=== PATIENT | female | born 1935 | race Hispanic/Latino ===

== ENCOUNTER → 2018-11-20 | Outpatient (CLI) | payer OTHER ==
[~2018-11-20] MED LIST: ATOR40TA71 PO; DORZ10DR19 OU; FISH1CAP63 PO; LATA7.5D OU; LEVO100T12 PO; METF-444 PO; TIMO1DRO2 OU
== END | disposition home or self-care (01) ==
LOC: RAH 12:42
PROVIDERS: ATTEND Family Medicine
DX: I65.23 Occlusion and stenosis of bilateral carotid arteries (principal)
CPT/HCPCS: 93880

== ENCOUNTER 2019-11-17 09:38 | Emergency (ER) | payer OTHER ==
[2019-11-17] MEDS ORDERED: TETANUS/DIPHTHERIA TOXOID [ADULT] 0.5 ML VIAL IM ONE (10:25)
[2019-11-17 10:34] LABS: BASOPHILS % (AUTO) 0.8 % (0.0-5.0); EOSINOPHILS % (AUTO) 2.3 % (0.0-8.0); HEMATOCRIT 26.6 % (36-48); LYMPHOCYTES % (AUTO) 11.2 % (21.0-51.0); MEAN CORPUSCULAR HEMOGLOBIN 30.5 pg (27.0-33.0); MEAN CORPUSCULAR HGB CONC 33.5 g/dL (32.0-36.0); MEAN CORPUSCULAR VOLUME 91.1 fL (79-99); PLATELET COUNT (AUTO) 168 K/uL (130-400); RED BLOOD CELL COUNT(AUTO) 2.92 MIL/uL (4.00-5.50); RED CELL DISTRIBUTION WIDTH 14.1 % (11.0-15.5); WHITE BLOOD COUNT (AUTO) 10.3 K/uL (4.8-10.8)
[2019-11-17 10:42] LABS: POTASSIUM 4.2 mmol/L (3.5-5.1)
[2019-11-17 10:44] LABS: INR 1.12 (0.85-1.15); PARTIAL THROMBOPLASTIN TIME 25.4 SEC (26.3-35.5)
[2019-11-17 10:47] LABS: ALBUMIN 3.3 g/dL (3.5-5.0); BILIRUBIN,TOTAL 0.8 mg/dL (0.2-1.0); TOTAL PROTEIN, SERUM 6.1 g/dL (6.0-8.3)
[2019-11-17] MEDS ORDERED: OCTYL 2-CYANOACRYLATE 1 EACH TP ONE (11:30)
== END 2019-11-17 12:09 | disposition home or self-care (01) ==
LOC: EDH 09:38
DX: S01.511A Laceration without foreign body of lip, initial encounter (principal); S01.512A Laceration without foreign body of oral cavity, initial encounter; E78.5 Hyperlipidemia, unspecified; I10 Essential (primary) hypertension; M19.90 Unspecified osteoarthritis, unspecified site; W01.198A Fall on same level from slipping, tripping and stumbling with subsequent striking against other object, initial encounter; Y93.01 Activity, walking, marching and hiking; Y92.89 Other specified places as the place of occurrence of the external cause; Y99.8 Other external cause status
CPT/HCPCS: 12011; 36415; 70450; 70486; 72125; 80053; 85025; 85610; 85730; 90471; 90714; 93005

== ENCOUNTER 2020-07-15 12:00 | Inpatient (IN) | payer OTHER ==
[~2020-07-15] VITALS: Ht 149.9 cm; Wt 51.1 kg
[2020-07-15] MEDS ORDERED: LIDOCAINE HCL 1% 20 ML VIAL ONE (12:34)
[2020-07-15] MEDS ORDERED: ONDANSETRON 4MG INJ ONE ×2 (13:16→18:02)
[2020-07-15 13:22] LABS: EOSINOPHILS % (AUTO) 7.7 % (0.0-8.0); HEMATOCRIT 27.5 % (36-48); LYMPHOCYTES % (AUTO) 19.4 % (21.0-51.0); MEAN CORPUSCULAR HEMOGLOBIN 29.7 pg (27.0-33.0); MEAN CORPUSCULAR HGB CONC 33.1 g/dL (32.0-36.0); MEAN CORPUSCULAR VOLUME 89.9 fL (79-99); MONOCYTES % (AUTO) 4.9 % (3.0-13.0); NEUTROPHILS % (AUTO) 66.6 % (40.0-77.0); PLATELET COUNT (AUTO) 217 K/uL (130-400); RED BLOOD CELL COUNT(AUTO) 3.06 MIL/uL (4.00-5.50); RED CELL DISTRIBUTION WIDTH 15.6 % (11.0-15.5); WHITE BLOOD COUNT (AUTO) 8.4 K/uL (4.8-10.8)
[2020-07-15 13:36] LABS: PARTIAL THROMBOPLASTIN TIME 27.6 SEC (26.3-35.5)
[2020-07-15 13:42] LABS: CREATINE KINASE, TOTAL 71 U/L (21-232); MYOGLOBIN 40 ng/mL (10-92); TROPONIN I < 0.04 ng/mL (0.00-0.06)
[2020-07-15 13:57] LABS: ALBUMIN 2.4 g/dL (3.5-5.0); BILIRUBIN,TOTAL 0.9 mg/dL (0.2-1.0); CREATININE 0.7 mg/dL (0.5-1.5); POTASSIUM 3.5 mmol/L (3.5-5.1); TOTAL PROTEIN, SERUM 5.7 g/dL (6.0-8.3)
[2020-07-15] MEDS ORDERED: MORPHINE 2 MG SYG ONE (14:15)
[2020-07-15 14:19] LABS: INR 1.15 (0.85-1.15); PROTHROMBIN TIME 12.4 SEC (9.6-11.6)
[2020-07-15] MEDS ORDERED: TETANUS/DIPHTHERIA TOXOID [ADULT] 0.5 ML VIAL IM ONE (15:10)
[2020-07-15] MEDS ORDERED: DEXTROSE 50%-WATER 50 ML DISP.SYRIN IV PRN (15:15)
[2020-07-15] MEDS ORDERED: ACETAMINOPHEN 325 MG TAB PO PRN (15:15)
[2020-07-15] MEDS ORDERED: GLUCAGON 1MG KIT 1 MG ML IM PRN (15:15)
[2020-07-15] MEDS ORDERED: LIDOCAINE HCL-MPF 1% 2ML VIAL IV PRN ×2 (15:15)
[2020-07-15] MEDS ORDERED: ONDANSETRON 4MG INJ IVP PRN (15:15)
[2020-07-15] MEDS ORDERED: KCL 20 MEQ ERTAB PO PRN (15:15)
[2020-07-15] MEDS ORDERED: MAGNESIUM 2GM PREMIX 50ML 50 ML IV PRN (15:15)
[2020-07-15] MEDS ORDERED: POTASSIUM CHLORIDE 20MEQ/100ML 100 ML IV PRN ×2 (15:15)
[2020-07-15] MEDS: PANTOPRAZOLE 40 MG TAB DR PO SCH (15:15)
[2020-07-15] MEDS: INSULIN HUMULIN R 100 UNIT/ML 3ML SQ SCH ×2 (16:30→21:00)
[2020-07-15] MEDS ORDERED: MAGNESIUM 2GM PREMIX 50ML 50 ML IV ONE (16:54)
[2020-07-15] MEDS ORDERED: LABETALOL 20MG SYG IV ONE (17:39)
[2020-07-15] MEDS ORDERED: FAMOTIDINE 20MG TAB ONE (17:40)
[2020-07-15] MEDS ORDERED: LOSARTAN 50 MG TABLET ONE (18:35)
[2020-07-15 20:02] LABS: HEMATOCRIT 23.8 % (36-48)
[2020-07-15] MEDS ORDERED: HYDRALAZINE 25MG TABLET ONE (21:04)
[2020-07-15] MEDS ORDERED: HYDRALAZINE 25MG TABLET PO PRN (21:45)
[2020-07-16] VITALS (9 sets, daily range): BP systolic 136–199; BP diastolic 55–91
[2020-07-16 02:02] LABS: HEMATOCRIT 21.5 % (36-48)
[2020-07-16 02:23] LABS: INR 1.18 (0.85-1.15); PROTHROMBIN TIME 12.7 SEC (9.6-11.6)
[2020-07-16 02:28] LABS: ALBUMIN 2.2 g/dL (3.5-5.0); BILIRUBIN,TOTAL 0.6 mg/dL (0.2-1.0); CREATININE 0.9 mg/dL (0.5-1.5); POTASSIUM 3.5 mmol/L (3.5-5.1); TOTAL PROTEIN, SERUM 4.9 g/dL (6.0-8.3)
[2020-07-16] MEDS: INSULIN HUMULIN R 100 UNIT/ML 3ML SQ SCH ×4 (05:48→20:30)
[2020-07-16] MEDS ORDERED: DILT120T PO (05:53)
[2020-07-16] MEDS ORDERED: MULT-1203 PO (05:53)
[2020-07-16] MEDS ORDERED: LOSA50TA64 PO (05:53)
[2020-07-16] MEDS: LEVOTHYROXINE 100 MCG TABLET PO SCH (06:51)
[2020-07-16] MEDS ORDERED: METFORMIN HCL 500 MG TABLET PO SCH (08:00)
[2020-07-16] MEDS: PANTOPRAZOLE 40 MG TAB DR PO SCH (08:41)
[2020-07-16] MEDS: POTASSIUM CHLORIDE 10% ELIXIR 20 MEQ/15 ML UDCUP PO PRN ×2 (08:44→10:08)
[2020-07-16] MEDS: LABETALOL 20MG VIAL IV PRN ×2 (10:01→16:43)
[2020-07-16] MEDS: TIMOLOL MALEATE 0.5% 5 ML BOTTLE OU SCH ×2 (10:27→20:30)
[2020-07-16] MEDS: DORZOLAMIDE HCL 2% 10ML DROPS OU SCH ×2 (10:27→20:30)
[2020-07-16 11:39] LABS: HEMATOCRIT 28.7 % (36-48)
[2020-07-16] MEDS ORDERED: IOHEXOL-350 75 ML VIAL IV ONE (15:24)
[2020-07-16] MEDS: HEPARIN 25,000 UNITS/250ML D5W 250 ML IV SCH (17:04)
[2020-07-16 18:31] LABS: HEMATOCRIT 26.8 % (36-48)
[2020-07-16] MEDS: LATANOPROST 2.5 ML DROPS OU SCH (20:25)
[2020-07-16] MEDS: ATORVASTATIN 40 MG TABLET PO SCH (20:26)
[2020-07-17 03:00] VITALS: BP 162/63
[2020-07-17 04:27] LABS: HEMATOCRIT 25.1 % (36-48); MEAN CORPUSCULAR HEMOGLOBIN 30.9 pg (27.0-33.0); MEAN CORPUSCULAR HGB CONC 35.1 g/dL (32.0-36.0); MEAN CORPUSCULAR VOLUME 88.1 fL (79-99); RED BLOOD CELL COUNT(AUTO) 2.85 MIL/uL (4.00-5.50); RED CELL DISTRIBUTION WIDTH 15.8 % (11.0-15.5); WHITE BLOOD COUNT (AUTO) 6.9 K/uL (4.8-10.8)
[2020-07-17 04:35] LABS: MAGNESIUM 2.2 mg/dL (1.80-2.40); POTASSIUM 3.9 mmol/L (3.5-5.1)
[2020-07-17] MEDS: LEVOTHYROXINE 100 MCG TABLET PO SCH (06:05)
[2020-07-17] MEDS: INSULIN HUMULIN R 100 UNIT/ML 3ML SQ SCH ×4 (06:43→21:00)
[2020-07-17 08:29] VITALS: BP 198/82
[2020-07-17] MEDS ORDERED: LOSARTAN 50 MG TABLET PO SCH (09:00)
[2020-07-17] MEDS: DILTIAZEM 120MG SR CAP PO SCH (09:42)
[2020-07-17] MEDS: TIMOLOL MALEATE 0.5% 5 ML BOTTLE OU SCH ×2 (09:42→21:29)
[2020-07-17] MEDS: DORZOLAMIDE HCL 2% 10ML DROPS OU SCH ×2 (09:42→21:30)
[2020-07-17] MEDS: PANTOPRAZOLE 40 MG TAB DR PO SCH (09:42)
[2020-07-17 11:38] LABS: HEMATOCRIT 27.7 % (36-48)
[2020-07-17] MEDS: LABETALOL 20MG VIAL IV PRN (11:53)
[2020-07-17 12:09] VITALS: BP 210/89
[2020-07-17 16:17] VITALS: BP 157/66
[2020-07-17 20:00] VITALS: BP 157/54
[2020-07-17] MEDS: ATORVASTATIN 40 MG TABLET PO SCH (21:29)
[2020-07-17] MEDS: LOSARTAN 50 MG TABLET PO SCH (21:29)
[2020-07-17] MEDS: LATANOPROST 2.5 ML DROPS OU SCH (21:30)
[2020-07-17 23:40] VITALS: BP 168/56
[2020-07-18 04:03] VITALS: BP 136/43
[2020-07-18 04:27] LABS: POTASSIUM 3.8 mmol/L (3.5-5.1)
[2020-07-18 04:29] LABS: HEMATOCRIT 25.2 % (36-48); MEAN CORPUSCULAR HEMOGLOBIN 30.9 pg (27.0-33.0); MEAN CORPUSCULAR HGB CONC 34.1 g/dL (32.0-36.0); MEAN CORPUSCULAR VOLUME 90.6 fL (79-99); RED BLOOD CELL COUNT(AUTO) 2.78 MIL/uL (4.00-5.50); RED CELL DISTRIBUTION WIDTH 15.9 % (11.0-15.5); WHITE BLOOD COUNT (AUTO) 6.8 K/uL (4.8-10.8)
[2020-07-18] MEDS: LEVOTHYROXINE 100 MCG TABLET PO SCH (06:59)
[2020-07-18] MEDS: INSULIN HUMULIN R 100 UNIT/ML 3ML SQ SCH ×4 (07:30→20:39)
[2020-07-18 08:47] VITALS: BP 133/48
[2020-07-18] MEDS: DILTIAZEM 120MG SR CAP PO SCH (09:31)
[2020-07-18] MEDS: PANTOPRAZOLE 40 MG TAB DR PO SCH (09:31)
[2020-07-18] MEDS: LOSARTAN 50 MG TABLET PO SCH ×2 (09:31→22:43)
[2020-07-18] MEDS: DORZOLAMIDE HCL 2% 10ML DROPS OU SCH ×2 (09:32→22:54)
[2020-07-18] MEDS: TIMOLOL MALEATE 0.5% 5 ML BOTTLE OU SCH ×2 (09:32→22:54)
[2020-07-18 12:11] VITALS: BP 153/54
[2020-07-18 15:30] VITALS: BP 138/49
[2020-07-18 20:00] VITALS: BP 167/65
[2020-07-18] MEDS: ATORVASTATIN 40 MG TABLET PO SCH (22:43)
[2020-07-18] MEDS: LATANOPROST 2.5 ML DROPS OU SCH (22:55)
[2020-07-19] VITALS (7 sets, daily range): BP systolic 144–198; BP diastolic 50–62
[2020-07-19] MEDS: HEPARIN 25,000 UNITS/250ML D5W 250 ML IV SCH (03:46)
[2020-07-19 04:56] LABS: HEMATOCRIT 26.3 % (36-48); MEAN CORPUSCULAR HEMOGLOBIN 30.6 pg (27.0-33.0); MEAN CORPUSCULAR HGB CONC 34.2 g/dL (32.0-36.0); MEAN CORPUSCULAR VOLUME 89.5 fL (79-99); RED BLOOD CELL COUNT(AUTO) 2.94 MIL/uL (4.00-5.50); RED CELL DISTRIBUTION WIDTH 15.9 % (11.0-15.5); WHITE BLOOD COUNT (AUTO) 6.7 K/uL (4.8-10.8)
[2020-07-19 05:06] LABS: POTASSIUM 3.6 mmol/L (3.5-5.1)
[2020-07-19] MEDS: INSULIN HUMULIN R 100 UNIT/ML 3ML SQ SCH ×4 (07:30→21:00)
[2020-07-19] MEDS: LEVOTHYROXINE 100 MCG TABLET PO SCH (09:44)
[2020-07-19] MEDS: LOSARTAN 50 MG TABLET PO SCH ×2 (09:51→20:54)
[2020-07-19] MEDS: DILTIAZEM 120MG SR CAP PO SCH (09:51)
[2020-07-19] MEDS: PANTOPRAZOLE 40 MG TAB DR PO SCH (09:51)
[2020-07-19] MEDS: TIMOLOL MALEATE 0.5% 5 ML BOTTLE OU SCH ×2 (09:53→20:54)
[2020-07-19] MEDS: DORZOLAMIDE HCL 2% 10ML DROPS OU SCH ×2 (09:53→20:55)
[2020-07-19] MEDS: ATORVASTATIN 40 MG TABLET PO SCH (20:54)
[2020-07-19] MEDS: LATANOPROST 2.5 ML DROPS OU SCH (20:54)
[2020-07-19] MEDS: APIXABAN 5 MG TABLET PO SCH (20:56)
[2020-07-20 04:42] VITALS: BP 142/58
[2020-07-20 07:00] VITALS: BP 165/54
[2020-07-20] MEDS: INSULIN HUMULIN R 100 UNIT/ML 3ML SQ SCH ×3 (07:30→16:10)
[2020-07-20] MEDS: LEVOTHYROXINE 100 MCG TABLET PO SCH (08:54)
[2020-07-20] MEDS: LOSARTAN 50 MG TABLET PO SCH (08:54)
[2020-07-20] MEDS: TIMOLOL MALEATE 0.5% 5 ML BOTTLE OU SCH ×2 (08:54→09:00)
[2020-07-20] MEDS: PANTOPRAZOLE 40 MG TAB DR PO SCH (08:54)
[2020-07-20] MEDS: DORZOLAMIDE HCL 2% 10ML DROPS OU SCH ×2 (08:54→09:00)
[2020-07-20] MEDS: APIXABAN 5 MG TABLET PO SCH (08:55)
[2020-07-20] MEDS: DILTIAZEM 120MG SR CAP PO SCH (08:55)
[2020-07-20 11:00] VITALS: BP 175/61
[2020-07-20] MEDS ORDERED: APIX5TAB PO (12:07)
[2020-07-20 16:00] VITALS: BP 141/57
== END 2020-07-20 16:46 | DRG 312 ==
LOC: EDH 12:00 → OBSVTOIN 15:04 → EDHIP 15:04 → 4DH 07-16 04:43
PROVIDERS: ADMIT Internal Medicine; ATTEND Internal Medicine
PROC: 0HQ0XZZ Repair Scalp Skin, External Approach (ICD-10-PCS; 2020-07-15)
PROC: 3E0234Z Introduction of Serum, Toxoid and Vaccine into Muscle, Percutaneous Approach (ICD-10-PCS; principal; 2020-07-16)
PROC: 30233N1 Transfusion of Nonautologous Red Blood Cells into Peripheral Vein, Percutaneous Approach (ICD-10-PCS; 2020-07-16)
DX: R55 Syncope and collapse (principal); I82.220 Acute embolism and thrombosis of inferior vena cava; C22.0 Liver cell carcinoma; E46 Unspecified protein-calorie malnutrition; R64 Cachexia; S01.01XA Laceration without foreign body of scalp, initial encounter; K74.60 Unspecified cirrhosis of liver; E83.51 Hypocalcemia; E11.9 Type 2 diabetes mellitus without complications; I10 Essential (primary) hypertension; E78.5 Hyperlipidemia, unspecified; M19.90 Unspecified osteoarthritis, unspecified site; D64.9 Anemia, unspecified; H91.90 Unspecified hearing loss, unspecified ear; R79.89 Other specified abnormal findings of blood chemistry; W19.XXXA Unspecified fall, initial encounter; Y93.89 Activity, other specified; Y92.89 Other specified places as the place of occurrence of the external cause; Z68.22 Body mass index [BMI] 22.0-22.9, adult; Y99.8 Other external cause status; Z79.01 Long term (current) use of anticoagulants; Z23 Encounter for immunization; Z79.84 Long term (current) use of oral hypoglycemic drugs; Z79.899 Other long term (current) drug therapy
CPT/HCPCS: 36415; 70450; 71275; 72125; 74177; 76700; 76770; 80048; 80053; 82378; 82550; 82948; 83735; 83874; 84484; 85014; 85018; 85025; 85027; 85610; 85730; 86850; 86900; 86901; 86923; 90714; 93005; 93306; 93356; 93880; 97039; G0378; J1644; J2405; J3475; J3490; P9016; Q9967